=== PATIENT | male | born 1940 | race Caucasian/White ===

== ENCOUNTER 2019-02-23 06:23 | Day surgery (SDC) | payer MEDICARE ==
[2019-02-23] MEDS ORDERED: Dexamethasone 4 MG/ML SDV IV ONE (06:24)
[2019-02-23] MEDS ORDERED: Midazolam 1 MG/ML 2 ML SDV IV ONE (06:24)
[2019-02-23] MEDS ORDERED: Timolol Maleate 0.5% Ophth Soln 5 ML Bottle EYERT ONE (06:30)
[2019-02-23] MEDS ORDERED: Proparacaine 0.5% Ophth Soln 15 ML Bottle EYERT ONE (06:30)
[2019-02-23] MEDS ORDERED: Ondansetron 4 MG/2 ML SDV IVPUSH PRN (06:30)
[2019-02-23] MEDS ORDERED: Cataract Ophth Solution EYERT ONE (06:30)
[2019-02-23] MEDS ORDERED: Moxifloxacin 0.5% Ophth Soln 3 ML Bottle EYERT ONE (06:30)
[2019-02-23] MEDS ORDERED: Povidone-Iodine 5% Sterile Ophth Soln 30 ML Bottle EYERT ONE ×2 (06:30→07:58)
[2019-02-23] MEDS ORDERED: Sodium Chloride 0.9% 10 ML Syringe FLUSH PRN (06:30)
[2019-02-23] MEDS ORDERED: Phenylephrine 10% Ophth Soln 5 ML Bot EYERT ONE (06:30)
[2019-02-23] MEDS ORDERED: Tetracaine HCl/PF 0.5% 4 ML Bottle EYERT ONE (07:58)
[2019-02-23] MEDS ORDERED: Lidocaine 1% 30 ML SDV ONE (07:58)
[2019-02-23] MEDS ORDERED: Apraclonidine 0.5% Ophth Soln 5 ML Bot EYERT ONE (07:58)
[2019-02-23] MEDS ORDERED: Diclofenac Sodium 0.1% Ophth Soln 5 ML Bottle EYERT ONE (07:59)
[2019-02-23] MEDS ORDERED: Dexamethasone/Neomycin/Polymyxin B Ophth Oint 3.5 GM Tube EYERT ONE (07:59)
[2019-02-23] MEDS ORDERED: Balanced Salt Solution Ophth Irrig 500 ML Bottle IOCULAR ONE (07:59)
[2019-02-23] MEDS ORDERED: Chondroitin Sulfate/Hyaluronate Sodium Ophth Inj 0.75 ML Syringe EYERT ONE (07:59)
[2019-02-23] MEDS ORDERED: Acetaminophen 325 MG Tab PO PRN (08:00)
[2019-02-23] MEDS ORDERED: Dexamethasone 4 MG/ML SDV IOCULAR ONE (08:00)
[2019-02-23] MEDS ORDERED: Vancomycin 500 MG SDV EYERT ONE (08:00)
--- NOTE | 2019-02-23 11:17 | OR ---
DATE: 02/23/2019 PREOPERATIVE DIAGNOSIS: Visually significant mixed cataract, right eye. POSTOPERATIVE DIAGNOSIS: Visually significant mixed cataract, right eye. PROCEDURE: Extracapsular cataract extraction with intraocular lens implant, right eye. ANESTHESIA: Topical/local MAC. COMPLICATIONS: None. INDICATION: The patient was seen in the clinic. Examination revealed advanced cataract. I explained options, I offered cataract surgery, and I explained risks including, but not limited to infection, retinal detachment, loss of vision, need for additional surgery amongst others. We discussed implant options. He requested surgery with a monofocal implant. OPERATIVE DESCRIPTION: After informed consent was obtained and the risks, benefits, and alternatives were explained, the patient was brought to the operative suite and topical anesthesia was administered. The patient was then prepped and draped in the sterile fashion and attention was placed on the right eye. A sterile lid speculum was placed into the right eye to allow operative exposure. A full-thickness paracentesis was made in the temporal portion of the operative eye. Preservative-free lidocaine 0.1 mL was injected into the anterior chamber followed by viscoelastic. A full-thickness corneal incision was then made into the anterior chamber. A bent needle cystotome was used to create a small erika in the anterior capsule. The capsulorrhexis forceps was then used to create a 360-degree curvilinear capsulorrhexis. The nucleus was then removed using a phacoemulsification handpiece and the remaining cortical material was then removed with irrigation and aspiration handpiece. Following removal of the cortical material, the capsular bag was then inspected and noted to be free of any holes or tears. Viscoelastic was then injected into the capsular bag and the intraocular lens was inserted into the capsular bag. The viscoelastic material was then removed from both the anterior and posterior chambers and from behind the IOL. The lens and capsular bag were then reinspected. The IOL was well centered and the capsular bag intact. The wound and paracentesis sites were inspected and hydrated with balanced saline solution. Both were found to be self- sealing. The intraocular pressure was assessed digitally and found to be within normal range. A good red reflex was noted at the completion of the procedure. No complications occurred during the operation. At the completion of the procedure, Maxitrol, Voltaren, and Iopidine drops were placed into the operative eye. A sterile eye shield was placed over the operative eye and the patient was transported to the postoperative recovery area having tolerated the procedure well. Postoperative instructions were given along with a postoperative appointment. The patient was advised to call with any questions or concerns. [facility] /[id number]
== END 2019-02-23 09:11 | disposition home or self-care (01) ==
LOC: DL.SDS 06:23
PROVIDERS: ATTEND Ophthalmology
DX: H26.9 Unspecified cataract (principal); M19.90 Unspecified osteoarthritis, unspecified site; E78.5 Hyperlipidemia, unspecified; I10 Essential (primary) hypertension; E66.09 Other obesity due to excess calories; Z68.32 Body mass index [BMI] 32.0-32.9, adult; Z87.891 Personal history of nicotine dependence; Z79.899 Other long term (current) drug therapy; Z79.82 Long term (current) use of aspirin
CPT/HCPCS: 00142; 66984; A9270; J1100; J2001; J2250; J3370; V2632

== ENCOUNTER 2019-03-02 06:01 | Day surgery (SDC) | payer MEDICARE ==
[2019-03-02] MEDS ORDERED: Midazolam 1 MG/ML 2 ML SDV IV ONE (06:02)
[2019-03-02] MEDS ORDERED: Dexamethasone 4 MG/ML SDV IV ONE (06:02)
[2019-03-02] MEDS ORDERED: Proparacaine 0.5% Ophth Soln 15 ML Bottle ONE (06:15)
[2019-03-02] MEDS ORDERED: Cataract Ophth Solution EYELF ONE (06:30)
[2019-03-02] MEDS ORDERED: Moxifloxacin 0.5% Ophth Soln 3 ML Bottle EYELF ONE (06:30)
[2019-03-02] MEDS ORDERED: Phenylephrine 10% Ophth Soln 5 ML Bot EYELF ONE ×2 (06:30→08:03)
[2019-03-02] MEDS ORDERED: Proparacaine 0.5% Ophth Soln 15 ML Bottle EYELF ONE (06:30)
[2019-03-02] MEDS ORDERED: Povidone-Iodine 5% Sterile Ophth Soln 30 ML Bottle EYELF ONE ×2 (06:30→08:03)
[2019-03-02] MEDS ORDERED: Acetaminophen 325 MG Tab PO PRN (06:30)
[2019-03-02] MEDS ORDERED: Phenylephrine 10% Ophth Soln 5 ML Bot EYELF PRN (06:30)
[2019-03-02] MEDS ORDERED: Sodium Chloride 0.9% 10 ML Syringe FLUSH PRN (06:30)
[2019-03-02] MEDS ORDERED: Ondansetron 4 MG/2 ML SDV IVPUSH PRN (06:30)
[2019-03-02] MEDS ORDERED: Timolol Maleate 0.5% Ophth Soln 5 ML Bottle EYELF ONE (06:30)
[2019-03-02] MEDS ORDERED: Tetracaine HCl/PF 0.5% 4 ML Bottle EYELF ONE (08:03)
[2019-03-02] MEDS ORDERED: Lidocaine 1% 30 ML SDV ONE (08:03)
[2019-03-02] MEDS ORDERED: Apraclonidine 0.5% Ophth Soln 5 ML Bot EYELF ONE (08:03)
[2019-03-02] MEDS ORDERED: Diclofenac Sodium 0.1% Ophth Soln 5 ML Bottle EYELF ONE (08:03)
[2019-03-02] MEDS ORDERED: Balanced Salt Solution Ophth Irrig 500 ML Bottle IOCULAR ONE (08:04)
[2019-03-02] MEDS ORDERED: Chondroitin Sulfate/Hyaluronate Sodium Ophth Inj 0.75 ML Syringe EYELF ONE (08:04)
[2019-03-02] MEDS ORDERED: Vancomycin 500 MG SDV EYELF ONE (08:04)
[2019-03-02] MEDS ORDERED: Dexamethasone 4 MG/ML SDV ONE (08:08)
--- NOTE | 2019-03-02 12:23 | OR ---
DATE: 03/02/2019 PREOPERATIVE DIAGNOSIS: Visually significant mixed cataract, left eye. POSTOPERATIVE DIAGNOSIS: Visually significant mixed cataract, left eye. PROCEDURE: Extracapsular cataract extraction with intraocular lens implant, left eye. ANESTHESIA: Topical/local MAC. COMPLICATIONS: None. INDICATION: Visually significant symptomatic cataract. Surgical risks were explained preoperatively including the potential for infection, retinal detachment, loss of vision, need for additional surgery, amongst others. Implant options were discussed. He requested a monofocal implant. OPERATIVE DESCRIPTION: After informed consent was obtained and the risks, benefits, and alternatives were explained, the patient was brought to the operative suite and topical anesthesia was administered. The patient was then prepped and draped in the sterile fashion and attention was placed on the left eye. A sterile lid speculum was placed into the left eye to allow operative exposure. A full-thickness paracentesis was made in the temporal portion of the operative eye. Preservative-free lidocaine 0.1 mL was injected into the anterior chamber followed by viscoelastic. A full-thickness corneal incision was then made into the anterior chamber. A bent needle cystotome was used to create a small erika in the anterior capsule. The capsulorrhexis forceps was then used to create a 360-degree curvilinear capsulorrhexis. The nucleus was then removed using a phacoemulsification handpiece and the remaining cortical material was then removed with irrigation and aspiration handpiece. Following removal of the cortical material, the capsular bag was then inspected and noted to be free of any holes or tears. Viscoelastic was then injected into the capsular bag and the intraocular lens was inserted into the capsular bag. The viscoelastic material was then removed from both the anterior and posterior chambers and from behind the IOL. The lens and capsular bag were then reinspected. The IOL was well centered and the capsular bag intact. The wound and paracentesis sites were inspected and hydrated with balanced saline solution. Both were found to be self- sealing. The intraocular pressure was assessed digitally and found to be within normal range. A good red reflex was noted at the completion of the procedure. No complications occurred during the operation. At the completion of the procedure, Maxitrol, Voltaren, and Iopidine drops were placed into the operative eye. A sterile eye shield was placed over the operative eye and the patient was transported to the postoperative recovery area having tolerated the procedure well. Postoperative instructions were given along with a postoperative appointment. The patient was advised to call with any questions or concerns. [facility] /[id number]
== END 2019-03-02 09:15 | disposition home or self-care (01) ==
LOC: DL.SDS 06:01
PROVIDERS: ATTEND Ophthalmology
DX: H26.8 Other specified cataract (principal); I10 Essential (primary) hypertension; E78.5 Hyperlipidemia, unspecified; M19.90 Unspecified osteoarthritis, unspecified site; Z98.41 Cataract extraction status, right eye; Z96.1 Presence of intraocular lens; Z87.891 Personal history of nicotine dependence; Z79.82 Long term (current) use of aspirin; Z79.899 Other long term (current) drug therapy
CPT/HCPCS: 00142; 66984; J1100; J2001; J2250; J3370; V2632

== ENCOUNTER 2021-02-07 16:56 | Emergency (ER) | payer MEDICARE ==
--- NOTE | 2021-02-07 18:19 | CR ---
PROCEDURE INFORMATION: Exam: XR Abdomen Exam date and time: 02/07/2021 5:48 PM Age: 80 years old Clinical indication: Constipation; Abdominal pain; Generalized; Additional info: Abdominal pain, constipation TECHNIQUE: Imaging protocol: XR of the abdomen. Views: 2 Views. Upright and supine views. COMPARISON: No relevant prior studies available. FINDINGS: Gastrointestinal tract: Normal. No bowel dilation. Intraperitoneal space: Normal. No free air. Organs: Calcific density overlies the lateral inferior margin of the renal form contour on the left. The possibility of a left renal calculus not excluded. Bones/joints: The spine demonstrates moderate degenerative changes. Bilateral degenerative hip arthropathy. IMPRESSION: 1. Calcific density overlies the lateral inferior margin of the renal form contour on the left. The possibility of a left renal calculus not excluded. 2. Otherwise unremarkable.
--- NOTE | 2021-02-07 22:13 | EDM.PDOC ---
ED HPI GENERAL MEDICAL PROBLEM - General Chief Complaint: Abdominal Pain Stated Complaint: HASN'T GONE TO BATHROOM IN DAYS Time Seen by Provider: 02/07/21 22:00 Source of Information: Reports: Patient, RN, RN Notes Reviewed History Limitations: Reports: No Limitations - History of Present Illness INITIAL COMMENTS - FREE TEXT/NARRATIVE: Patient is a 80-year-old male who presents to ER with complaint of constipation, states he has not had a bowel movement in a few days. Patient states he has been using docusate sodium and Metamucil at home without results. Patient states he wanted to make sure he did not have a bowel obstruction prior to using magnesium citrate. Patient denies any nausea or vomiting, denies severe pain, just complains of a feeling of fullness. Onset: Gradual - Related Data Allergies Allergy/AdvReac Type Severity Reaction Status Date / Time No Known Allergies Allergy Verified 02/07/21 17:35 Home Meds: Home Meds Aspirin [Halfprin] 81 mg PO DAILY 02/21/19 [History] Olmesartan/Hydrochlorothiazide [Benicar HCT 20-12.5 MG] 1 tab PO DAILY 02/21/19 [History] [id number] [Cataract Opthalmic Solution] 1 drop EYERT ASDIRECTED 02/21/19 [History] Rosuvastatin [Crestor] 10 mg PO DAILY 02/21/19 [History] Vit A/Vit C/Vit E/Zinc/Copper [Preservision] 1 tab PO BID 02/21/19 [History] Past Medical History HEENT History: Reports: Cataract, Impaired Vision Cardiovascular History: Reports: High Cholesterol, Hypertension Respiratory History: Reports: None Gastrointestinal History: Reports: None Genitourinary History: Reports: None Musculoskeletal History: Reports: Arthritis Neurological History: Reports: None Psychiatric History: Reports: None Endocrine/Metabolic History: Reports: Obesity/BMI 30+ Hematologic History: Reports: None Immunologic History: Reports: None Oncologic (Cancer) History: Reports: None Dermatologic History: Reports: None - Infectious Disease History Infectious Disease History: Reports: Chicken Pox, Measles, Mumps - Past Surgical History Head Surgeries/Procedures: Reports: None HEENT Surgical History: Reports: Cataract Surgery, Oral Surgery Cardiovascular Surgical History: Reports: None Respiratory Surgical History: Reports: None GI Surgical History: Reports: None Male Surgical History: Reports: Vasectomy Endocrine Surgical History: Reports: None Neurological Surgical History: Reports: None Musculoskeletal Surgical History: Reports: None Oncologic Surgical History: Reports: None Dermatological Surgical History: Reports: None Social & Family History - Tobacco Use Tobacco Use Status *Q: Former Tobacco User Used Tobacco, but Quit: Yes Month/Year Tobacco Last Used: 05/1969 - Caffeine Use Caffeine Use: Reports: Coffee Other Caffeine Use: COFFEE, AVERAGE OF 2 EVERY AM - Recreational Drug Use Recreational Drug Use: No ED ROS GENERAL - Review of Systems Review Of Systems: Comprehensive ROS is negative, except as noted in HPI. ED EXAM, GI/ABD - Physical Exam Exam: See Below Exam Limited By: No Limitations General Appearance: Alert, WD/WN, No Apparent Distress Eyes: Bilateral: Normal Appearance, EOMI Ears: Normal External Exam, Hearing Grossly Normal Nose: Normal Inspection, Normal Mucosa, No Blood Throat/Mouth: Normal Inspection, Normal Lips, Normal Teeth, Normal Gums, Normal Oropharynx, Normal Voice, No Airway Compromise Head: Atraumatic, Normocephalic Neck: Normal Inspection, Supple, Non-Tender, Full Range of Motion Respiratory/Chest: No Respiratory Distress, Lungs Clear, Normal Breath Sounds, No Accessory Muscle Use, Chest Non-Tender Cardiovascular: Normal Peripheral Pulses, Regular Rate, Rhythm, No Edema, No Gallop, No JVD, No Murmur, No Rub GI/Abdominal Exam: Normal Bowel Sounds, Soft, Non-Tender, No Organomegaly, No Distention, No Abnormal Bruit, No Mass, Pelvis Stable (Male) Exam: Deferred Rectal (Males) Exam: Deferred Back Exam: Normal Inspection, Full Range of Motion, NT Extremities: Normal Inspection, Normal Range of Motion, Non-Tender, Normal Capillary Refill, No Pedal Edema Neurological: Alert, Oriented, CN II-XII Intact, Normal Cognition, Normal Gait, Normal Reflexes, No Motor/Sensory Deficits Psychiatric: Normal Affect, Normal Mood Skin Exam: Warm, Dry, Intact, Normal Color, No Rash Lymphatic: No Adenopathy Course - Vital Signs Last Recorded V/S: Last Vital Signs Temp 98.4 F 02/07/21 17:31 Pulse 104 H 02/07/21 17:31 Resp 20 02/07/21 17:31 BP 152/74 H 02/07/21 17:31 Pulse Ox 96 02/07/21 17:31 - Radiology Interpretation Free Text/Narrative:: Abdomen xray: [facility] [place] [facility] Final Radiology Report Call: [phone] assistance Online chat: [email or web address] Name: YEFRI GARDUNO Age: 80Years M Date: 02/07/2021 SSN: -- : [id number] Study: CR ABDOMEN 2V AP FLAT UPRIGHT Requesting Physician: BERE JOHN Images: 4 Addl Studies: Provided Clinical History: Abdominal pain, constipation Contrast: Contrast Medium: Contrast Amount: Contrast Method: Page 1 of 2 PROCEDURE INFORMATION: Exam: XR Abdomen Exam date and time: 02/07/2021 5:48 PM Age: 80 years old Clinical indication: Constipation; Abdominal pain; Generalized; Additional info: Abdominal pain, constipation TECHNIQUE: Imaging protocol: XR of the abdomen. Views: 2 Views. Upright and supine views. COMPARISON: No relevant prior studies available. FINDINGS: Gastrointestinal tract: Normal. No bowel dilation. Intraperitoneal space: Normal. No free air. Organs: Calcific density overlies the lateral inferior margin of the renal form contour on the left. The possibility of a left renal calculus not excluded. Bones/joints: The spine demonstrates moderate degenerative changes. Bilateral degenerative hip arthropathy. IMPRESSION: 1. Calcific density overlies the lateral inferior margin of the renal form contour on the left. The possibility of a left renal calculus not excluded. 2. Otherwise unremarkable. Thank you for allowing us to participate in the care of your patient. Dictated and Authenticated by: Jorge Song MD See rad report Departure - Departure Time of Disposition: 22:11 Disposition: Home, Self-Care 01 Condition: Good Clinical Impression: Constipation Qualifiers: Constipation type: unspecified constipation type Qualified Code(s): K59.00 - Constipation, unspecified - Discharge Information *PRESCRIPTION DRUG MONITORING PROGRAM REVIEWED*: No *COPY OF PRESCRIPTION DRUG MONITORING REPORT IN PATIENT GALE: No Instructions: Constipation, Adult, [id number] Forms: ED Department Discharge Additional Instructions: May use magnesium citrate at home as directed, drink entire bottle May use [id number] suppositories as directed for constipation May also use MiraLAX as directed for chronic constipation Follow-up with your primary care provider Sepsis Event Note (ED) - Focused Exam Vital Signs: Vital Signs Temp Pulse Resp BP Pulse Ox 02/07/21 17:31 98.4 F 104 H 20 152/74 H 96
== END 2021-02-07 22:20 | disposition home or self-care (01) ==
LOC: DL.ED 16:56
DX: K59.00 Constipation, unspecified (principal); E78.00 Pure hypercholesterolemia, unspecified; I10 Essential (primary) hypertension; E66.9 Obesity, unspecified; Z68.32 Body mass index [BMI] 32.0-32.9, adult; Z79.82 Long term (current) use of aspirin; Z87.891 Personal history of nicotine dependence; Z79.899 Other long term (current) drug therapy
CPT/HCPCS: 74019; 99283-25

== ENCOUNTER 2021-02-28 07:30 | Day surgery (SDC) | payer MEDICARE ==
[~2021-02-28 07:30] MED LIST: Dextrose 5%-0.45% NaCl 1,000 ML IV SCH; Midazolam 1 MG/ML 2 ML SDV ONE; Sodium Chloride 0.9% 10 ML Syringe FLUSH PRN; fentaNYL 100 MCG/2 ML SDV ONE
[2021-02-28] MEDS ORDERED: fentaNYL 100 MCG/2 ML SDV IV ONE ×3 (07:31→08:51)
[2021-02-28] MEDS ORDERED: Midazolam 1 MG/ML 2 ML SDV IV ONE ×4 (07:31→08:54)
--- NOTE | 2021-02-28 12:37 | OR ---
DATE: 02/28/2021 PROCEDURE: Esophagogastroduodenoscopy and multiple pinch biopsies. INSTRUMENT USED: [id number]-HQ190 Olympus video panendoscope. PREMEDICATIONS: No oral or topical anesthesia used. Fentanyl 100 mcg intravenous, Versed 2 mg IV. Nasal O2 cannula. The procedure was done under pulse oximetry, BP recording, and flavor tank tender. INDICATION: The patient with persistent abdominal pain and progressive weight loss, unexplained. Esophagogastroduodenoscopy is performed for detection of any active erosive lesions, Reich esophagus and/or malignancy also under consideration, H pylori status to be determined, small bowel biopsies to be obtained for any evidence of celiac disease, endoscopic hemostasis therapy if needed. DESCRIPTION OF PROCEDURE: The scope was passed with ease, adequate visualization of the esophagus was made from proximal to distal areas. No upper esophageal lesions identified. No distal esophageal stricture. No uphill or downhill esophageal varices. No María-Harper tear. No evidence of erosive esophagitis by [place] criteria. No esophageal polyp or tumor mass identified. Z-line was seen at around 40 cm distal to the oral verge. No proximal gastric varices noted. Gastric fundus examination by retroflexion showed no polypoid lesions. No gastric polyp or vascular ectasia identified. In the proximal antrum, 1 cm size benign-appearing ulcer was noted, photographs were taken, multiple pinch biopsies, 4 in number were taken from different areas of the ulcer and brush biopsy was taken for cytology. Duodenal bulb showed no ulcer. Visualized second part of the duodenum was unremarkable. Multiple pinch biopsies, 4 in number were taken from different areas of the second part of the duodenum and tissues were also obtained from the duodenal bulb at 9 and 12 o'clock positions and sent for any histopathologic evidence of celiac disease. Multiple pinch biopsies were also taken from the gastric antrum, proximal body and sent for PyloriTek test for H pylori and histopathology. No bleeding was noted from any of the visualized areas at the completion of examination. Photographs were taken of the duodenal bulb, gastric antrum, gastric antral ulcer as well as fundus. IMPRESSION: Gastric antral ulcer. The patient tolerated the procedure well. [facility] /[id number]
== END 2021-02-28 11:14 | disposition home or self-care (01) ==
LOC: DL.ENDO 07:30
PROVIDERS: ATTEND Internal Medicine Gastroenterology
DX: K25.9 Gastric ulcer, unspecified as acute or chronic, without hemorrhage or perforation (principal); B96.81 Helicobacter pylori [H. pylori] as the cause of diseases classified elsewhere; Z20.822 Contact with and (suspected) exposure to COVID-19; R63.4 Abnormal weight loss; E78.5 Hyperlipidemia, unspecified; E11.9 Type 2 diabetes mellitus without complications; E66.09 Other obesity due to excess calories; I10 Essential (primary) hypertension; Z98.890 Other specified postprocedural states; Z01.812 Encounter for preprocedural laboratory examination; Z68.30 Body mass index [BMI] 30.0-30.9, adult
CPT/HCPCS: 43239; 82947; 87077; J2250; J3010; J7042; U0002; 88104

== ENCOUNTER 2021-03-13 05:50 | Day surgery (SDC) | payer MEDICARE ==
[~2021-03-13 05:50] MED LIST changes: -Dextrose 5%-0.45% NaCl 1,000 ML IV SCH; -Sodium Chloride 0.9% 10 ML Syringe FLUSH PRN
[2021-03-13] MEDS ORDERED: fentaNYL 100 MCG/2 ML SDV IV ONE ×3 (05:51→07:04)
[2021-03-13] MEDS ORDERED: Midazolam 1 MG/ML 2 ML SDV IV ONE ×6 (05:51→07:11)
[2021-03-13] MEDS ORDERED: Dextrose 5%-0.45% NaCl 1,000 ML IV SCH (06:15)
--- NOTE | 2021-03-13 14:27 | OR ---
DATE: 03/13/2021 PROCEDURES: Total colonoscopy, NBI, and multiple cold snare polypectomies. INSTRUMENT USED: [id number]-H190DL Olympus video colonoscope. PREMEDICATIONS: Fentanyl 100 mcg intravenous, Versed 3 mg intravenous, nasal O2 cannula. The procedure was done under pulse oximetry, BP recording, and cardiac catheterization technician. INDICATION: The patient with progressive constipation, unexplained, and recent CT suggestive of sigmoid colon lesion. Colonoscopic examination is done for detection of any polypoid lesions and removal, endoscopic hemostasis therapy if needed. DESCRIPTION OF PROCEDURE: Initial rectal exam showed external hemorrhoidal tags. Rigid anoscopy was normal. The colonoscope was passed with ease. Scattered diverticula were noted in the distal left colon along with deformity. The scope was passed with ease up to the ileocecal area. Photographs were taken of the normal-appearing cecum, identified by landmarks of appendiceal orifice and double-bulged ileocecal folds. No bleeding was noted from any of the visualized areas at the commencement of the examination. Bowel preparation was found to be adequate, Clayton scale 2 in right and left colon, 3 in transverse colon, total score 7. No stricture. No vascular ectasia. No large isolated ulcerations seen. No evidence of diffuse inflammatory bowel disease in the form of friability, contact bleeding, or ulcerations. In the area of hepatic flexure, benign appearing 1 cm sessile polyp was noted, NBI views were obtained, photographs were taken. Piecemeal cold snare polypectomy was done, the tissues were retrieved and sent for histopathology. 5 mm pedunculated polyp was noted at the distal ascending colon, cold snare polypectomy was done. The tissue was retrieved and sent for histopathology. Probing the proximal sides of folds and flexures using adequate distention and clearing up the stool material, withdrawal of the scope was made. No bleeding was noted from any of the visualized areas at the completion of examination. IMPRESSION: 1. External hemorrhoids. 2. Diverticulosis. 3. Ascending colon polyps. The patient tolerated the procedure well. [facility] /[id number]
== END 2021-03-13 10:10 | disposition home or self-care (01) ==
LOC: DL.ENDO 05:50
PROVIDERS: ATTEND Internal Medicine Gastroenterology
DX: D12.2 Benign neoplasm of ascending colon (principal); D12.3 Benign neoplasm of transverse colon; K59.00 Constipation, unspecified; K64.4 Residual hemorrhoidal skin tags; K57.30 Diverticulosis of large intestine without perforation or abscess without bleeding; E11.9 Type 2 diabetes mellitus without complications; E78.5 Hyperlipidemia, unspecified; I10 Essential (primary) hypertension; K25.9 Gastric ulcer, unspecified as acute or chronic, without hemorrhage or perforation
CPT/HCPCS: 45385; 88305; J2250; J3010; J7042

== ENCOUNTER 2021-06-04 05:40 | Day surgery (SDC) | payer MEDICARE ==
[~2021-06-04 05:40] MED LIST changes: +Dextrose 5%-0.45% NaCl 1,000 ML IV SCH; -Midazolam 1 MG/ML 2 ML SDV ONE; +Sodium Chloride 0.9% 10 ML Syringe FLUSH SCH; -fentaNYL 100 MCG/2 ML SDV ONE
[2021-06-04] MEDS ORDERED: fentaNYL 100 MCG/2 ML SDV IV ONE (05:41)
[2021-06-04] MEDS ORDERED: Midazolam 1 MG/ML 2 ML SDV IV ONE (05:41)
[2021-06-04] MEDS ORDERED: Midazolam 1 MG/ML 2 ML SDV ONE (06:10)
[2021-06-04] MEDS ORDERED: fentaNYL 100 MCG/2 ML SDV ONE (06:10)
[2021-06-04] MEDS: Dextrose 5%-0.45% NaCl 1,000 ML IV SCH (06:17)
[2021-06-04] MEDS: fentaNYL 100 MCG/2 ML SDV IV ONE ×2 (07:04→07:05)
[2021-06-04] MEDS: Midazolam 1 MG/ML 2 ML SDV IV ONE (07:06)
== END 2021-06-04 09:15 | disposition home or self-care (01) ==
LOC: DL.ENDO 05:40
PROVIDERS: ATTEND Internal Medicine Gastroenterology
DX: K29.50 Unspecified chronic gastritis without bleeding (principal); K31.89 Other diseases of stomach and duodenum; E11.9 Type 2 diabetes mellitus without complications; I10 Essential (primary) hypertension; E78.5 Hyperlipidemia, unspecified; Z86.010 Personal history of colon polyps; Z01.812 Encounter for preprocedural laboratory examination; Z20.822 Contact with and (suspected) exposure to COVID-19; Z87.19 Personal history of other diseases of the digestive system
CPT/HCPCS: 82947; J2250; J3010; J7042; U0002

== ENCOUNTER 2024-04-11 16:57 | Inpatient (IN) | payer MEDICARE ==
[2024-04-11 17:56] LABS: BASOPHILS PERCENT AUTO 0.2 % (0.0-1.0); EOSINOPHILS PERCENT AUTO 1.7 % (1.0-3.0); HEMATOCRIT 37.3 % (40.0-54.0); HEMOGLOBIN 12.2 g/dL (14.0-18.0); LYMPHOCYTES PERCENT AUTO 10.1 % (20.5-50.1); MEAN CORPUSCULAR HEMOGLOBIN 28.7 pg (27.0-34.0); MEAN CORPUSCULAR HGB CONC 32.7 g/dL (33.0-35.0); MEAN CORPUSCULAR VOLUME 87.8 fL (80-100); MONOCYTES PERCENT AUTO 6.9 % (2-8); NEUTROPHILS PERCENT AUTO 81.1 % (42.2-75.2); PLATELET COUNT,PLT 231 10^3/uL (150-450); RED BLOOD CELL COUNT 4.25 10^6/uL (4.6-6.2); WHITE BLOOD CELL COUNT,WBC 10.2 10^3/uL (5.0-10.0)
[2024-04-11] MEDS: Acetaminophen 325 MG Tab PO ONE (18:14)
[2024-04-11] MEDS: Piperacillin/Tazobactam 4.5 GM in Sodium Chloride 0.9% 100 ML IV ONE (18:15)
[2024-04-11 18:18] LABS: LACTIC ACID 1.7 mmol/L (0.4-2.0)
[2024-04-11 18:24] LABS: ALANINE AMINOTRANSFERASE,ALT 24 U/L (16-63); ALBUMIN 3.3 g/dL (3.4-5.0); ALKALINE PHOSPHATASE 140 U/L (46-116); ANION GAP 14.3 mEq/L (7-13); ASPARTATE AMNIOTRANSFERASE,AST 18 U/L (15-37); BILIRUBIN TOTAL 0.4 mg/dL (0.2-1.0); BLOOD UREA NITROGEN,BUN 17 mg/dL (7-18); BUN/CREATININE RATIO 19.5 (No establ ref range); C-REACTIVE PROTEIN 2.35 ng/dL (<=0.50); CALCIUM 9.1 mg/dL (8.5-10.1); CARBON DIOXIDE,CO2 29 mmol/L (21-32); CHLORIDE,CL 99 mmol/L (98-107); CREATININE 0.87 mg/dL (0.70-1.30); GLUCOSE RANDOM 173 mg/dL (70-99); MAGNESIUM 1.8 mg/dL (1.8-2.4); POTASSIUM,K 3.3 mmol/L (3.5-5.1); PROTEIN TOTAL,TP 7.8 g/dL (6.4-8.2); SODIUM,NA 139 mmol/L (136-145)
[2024-04-11 18:25] LABS: A/G RATIO 0.73; ESTIMATED GFR 87 mL/min (>=60)
[2024-04-11] MEDS ORDERED: Acetaminophen/HYDROcodone 325-10 MG Tab PO PRN (20:51)
[2024-04-11] MEDS ORDERED: Magnesium Hydroxide 400 MG/5 ML Susp 30 ML Cup PO PRN (20:51)
[2024-04-11] MEDS ORDERED: Polyethylene Glycol 3350 Powder 17 GM Packet PO PRN (20:51)
[2024-04-11] MEDS ORDERED: Albuterol/Ipratropium 3.0-0.5 MG/3 ML Neb Soln NEB PRN (20:51)
[2024-04-11] MEDS ORDERED: Naloxone 2 MG/2 ML Syringe IVPUSH PRN (20:51)
[2024-04-11] MEDS ORDERED: Metoclopramide 10 MG/2 ML SDV IV PRN (20:51)
[2024-04-11] MEDS ORDERED: HYDROmorphone 0.5 MG/0.5 ML Syringe IVPUSH PRN ×2 (20:51→21:02)
[2024-04-11] MEDS ORDERED: Sennosides/Docusate Sodium 50-8.6 MG Tab PO PRN (20:51)
[2024-04-11 20:52] LABS: HEMOGLOBIN A1C 7.7 % (<5.7)
[2024-04-11 21:01] LABS: T4 FREE 1.37 ng/dL (0.76-1.46); TSH ULTRASENSITIVE 0.94 uIU/mL (0.36-3.74)
[2024-04-11] MEDS: Potassium Chloride 10 MEQ Tab.ER PO ONE (21:42)
[2024-04-11] MEDS: Sodium Chloride 0.9% 1,000 ML IV ONE (21:42)
[2024-04-11] MEDS: VANCOmycin 1.75 GM/350 ML 1.75 GM in Premix Bag 1 BAG IV ONE (21:43)
[2024-04-11] MEDS: Temazepam 15 MG Cap PO PRN (21:44)
[2024-04-11] MEDS: Potassium Chloride 10 MEQ Tab.ER PO SCH (21:44)
[2024-04-12] MEDS: Ampicillin/Sulbactam Na 1.5 GM in Sodium Chloride 0.9% 100 ML IV SCH (00:12)
[2024-04-12] MEDS ORDERED: 50% Dextrose in Water 50 ML Syringe IVPUSH PRN (06:23)
[2024-04-12] MEDS ORDERED: Glucagon,Human Recombinant 1 MG Vial IM PRN (06:23)
[2024-04-12 08:03] LABS: BASOPHILS PERCENT AUTO 0.2 % (0.0-1.0); EOSINOPHILS PERCENT AUTO 1.6 % (1.0-3.0); HEMATOCRIT 34.3 % (40.0-54.0); MEAN CORPUSCULAR HEMOGLOBIN 28.3 pg (27.0-34.0); MEAN CORPUSCULAR HGB CONC 32.1 g/dL (33.0-35.0); MEAN CORPUSCULAR VOLUME 88.2 fL (80-100); MONOCYTES PERCENT AUTO 6.4 % (2-8); NEUTROPHILS PERCENT AUTO 80.8 % (42.2-75.2); PLATELET COUNT,PLT 194 10^3/uL (150-450); RED BLOOD CELL COUNT 3.89 10^6/uL (4.6-6.2); WHITE BLOOD CELL COUNT,WBC 9.8 10^3/uL (5.0-10.0)
[2024-04-12 08:31] LABS: ALBUMIN 2.7 g/dL (3.4-5.0); BILIRUBIN TOTAL 0.5 mg/dL (0.2-1.0); BUN/CREATININE RATIO 14.9 (No establ ref range); C-REACTIVE PROTEIN 3.24 ng/dL (<=0.50); CALCIUM 8.6 mg/dL (8.5-10.1); CREATININE 0.87 mg/dL (0.70-1.30); EST CRCL DRUG DOSING (CG) 70.92 mL/min; MAGNESIUM 1.9 mg/dL (1.8-2.4); PROTEIN TOTAL,TP 6.9 g/dL (6.4-8.2)
[2024-04-12 08:34] LABS: A/G RATIO 0.64
[2024-04-12] MEDS: Omeprazole 20 MG Cap.CR PO SCH (08:40)
[2024-04-12] MEDS: Saccharomyces Boulardii (Probiotic) 250 MG Cap PO SCH (08:41)
[2024-04-12] MEDS: Losartan 50 MG Tab PO SCH (08:41)
[2024-04-12] MEDS: Rosuvastatin 10 MG Tab PO SCH (08:41)
[2024-04-12] MEDS: Furosemide 20 MG Tab PO SCH (08:42)
[2024-04-12] MEDS: Insulin Lispro 100 Units/ML 3 ML Vial SUBCUT SCH (08:44)
[2024-04-12] MEDS: Enoxaparin 40 MG/0.4 ML Syringe SUBCUT SCH (08:52)
[2024-04-12] MEDS: Psyllium Husk Powder (4 in 1) 3.4 GM Packet PO SCH (09:00)
[2024-04-12] MEDS: VANCOmycin 1 GM in Sodium Chloride 0.9% 250 ML IV SCH (20:59)
[2024-04-12] MEDS: Lutein/Minerals/Vit A,C & E Tab PO SCH (20:59)
[2024-04-12] MEDS: Thiamine 100 MG Tab PO SCH (21:00)
[2024-04-12] MEDS ORDERED: Multivitamins with Iron/Calcium/Folic Acid/Minerals Tab PO SCH (21:00)
[2024-04-12] MEDS: Melatonin 3 MG Tab PO PRN (21:00)
[2024-04-12] MEDS: Acetaminophen 325 MG Tab PO PRN (21:00)
[2024-04-13 06:56] LABS: BASOPHILS PERCENT AUTO 0.2 % (0.0-1.0); EOSINOPHILS PERCENT AUTO 2.5 % (1.0-3.0); HEMATOCRIT 33.9 % (40.0-54.0); HEMOGLOBIN 10.8 g/dL (14.0-18.0); LYMPHOCYTES PERCENT AUTO 13.8 % (20.5-50.1); MEAN CORPUSCULAR HEMOGLOBIN 28.3 pg (27.0-34.0); MEAN CORPUSCULAR HGB CONC 31.9 g/dL (33.0-35.0); MEAN CORPUSCULAR VOLUME 88.7 fL (80-100); MONOCYTES PERCENT AUTO 6.5 % (2-8); PLATELET COUNT,PLT 198 10^3/uL (150-450); RED BLOOD CELL COUNT 3.82 10^6/uL (4.6-6.2); WHITE BLOOD CELL COUNT,WBC 8.5 10^3/uL (5.0-10.0)
[2024-04-13 07:32] LABS: ALBUMIN 2.7 g/dL (3.4-5.0); BILIRUBIN TOTAL 0.4 mg/dL (0.2-1.0); BUN/CREATININE RATIO 16.9 (No establ ref range); C-REACTIVE PROTEIN 4.07 ng/dL (<=0.50); CALCIUM 8.7 mg/dL (8.5-10.1); CREATININE 0.89 mg/dL (0.70-1.30); EST CRCL DRUG DOSING (CG) 69.33 mL/min; MAGNESIUM 1.9 mg/dL (1.8-2.4); PROTEIN TOTAL,TP 6.9 g/dL (6.4-8.2)
[2024-04-13 07:41] LABS: A/G RATIO 0.64
[2024-04-13] MEDS ORDERED: Hydrochlorothiazide 25 MG Tab PO SCH (09:00)
[2024-04-13] MEDS: Hydrochlorothiazide 25 MG Tab PO SCH (09:14)
[2024-04-13] MEDS: traMADol 50 MG Tab PO PRN (20:32)
[2024-04-14 07:04] LABS: BASOPHILS PERCENT AUTO 0.4 % (0.0-1.0); EOSINOPHILS PERCENT AUTO 3.4 % (1.0-3.0); HEMATOCRIT 35.1 % (40.0-54.0); HEMOGLOBIN 11.1 g/dL (14.0-18.0); LYMPHOCYTES PERCENT AUTO 17.3 % (20.5-50.1); MEAN CORPUSCULAR HEMOGLOBIN 28.2 pg (27.0-34.0); MEAN CORPUSCULAR HGB CONC 31.6 g/dL (33.0-35.0); MEAN CORPUSCULAR VOLUME 89.3 fL (80-100); MONOCYTES PERCENT AUTO 6.6 % (2-8); NEUTROPHILS PERCENT AUTO 72.3 % (42.2-75.2); PLATELET COUNT,PLT 216 10^3/uL (150-450); RED BLOOD CELL COUNT 3.93 10^6/uL (4.6-6.2); WHITE BLOOD CELL COUNT,WBC 7.7 10^3/uL (5.0-10.0)
[2024-04-14 07:31] LABS: ALBUMIN 2.8 g/dL (3.4-5.0); BILIRUBIN TOTAL 0.3 mg/dL (0.2-1.0); BUN/CREATININE RATIO 21.5 (No establ ref range); C-REACTIVE PROTEIN 3.1 ng/dL (<=0.50); CALCIUM 8.9 mg/dL (8.5-10.1); CREATININE 0.93 mg/dL (0.70-1.30); EST CRCL DRUG DOSING (CG) 66.35 mL/min; MAGNESIUM 1.9 mg/dL (1.8-2.4); PROTEIN TOTAL,TP 7.3 g/dL (6.4-8.2)
[2024-04-14 07:32] LABS: A/G RATIO 0.62
[2024-04-14] MEDS: Lidocaine 1% 30 ML SDV INJECT ONE (11:20)
[2024-04-14] MEDS: LORazepam 2 MG/ML SDV IV ONE (11:35)
[2024-04-14] MEDS: HYDROmorphone 2 MG/ML Syringe IV ONE (11:38)
[2024-04-14] MEDS: Bacitracin Oint 28.35 GM Tube TOP SCH (11:44)
[2024-04-14] MEDS ORDERED: Bacitracin/Neomycin/Polymyxin B Oint 28.4 GM Tube TOP SCH (11:45)
[2024-04-14] MEDS: VIT C PO SCH (15:00)
[2024-04-14] MEDS: [UNRECOGNIZED DRUG - OTHER] PO SCH (15:00)
[2024-04-14] MEDS: LUTEIN PO SCH (15:00)
[2024-04-14] MEDS: CUPERIC PO SCH (15:00)
[2024-04-14] MEDS: ZINC PO SCH (15:00)
[2024-04-14] MEDS: Ondansetron 4 MG/2 ML SDV IVPUSH PRN (15:26)
[2024-04-14] MEDS ORDERED: VANCOmycin 1.75 GM/350 ML 350 ML IV SCH (20:30)
== END 2024-04-14 15:37 | disposition swing bed (61) | DRG 872 ==
LOC: DL.ED 16:57 → DL.MS 18:35 → DL.ED 18:40
PROVIDERS: ADMIT Internal Medicine; ATTEND Internal Medicine
PROC: 3E03329 Introduction of Other Anti-infective into Peripheral Vein, Percutaneous Approach (ICD-10-PCS; 2024-04-12)
PROC: 0HBLXZZ Excision of Left Lower Leg Skin, External Approach (ICD-10-PCS; principal; 2024-04-14)
PROC: 0HBKXZZ Excision of Right Lower Leg Skin, External Approach (ICD-10-PCS; 2024-04-14)
DX: A41.01 Sepsis due to Methicillin susceptible Staphylococcus aureus (principal); L03.116 Cellulitis of left lower limb; E11.621 Type 2 diabetes mellitus with foot ulcer; L97.929 Non-pressure chronic ulcer of unspecified part of left lower leg with unspecified severity; L97.919 Non-pressure chronic ulcer of unspecified part of right lower leg with unspecified severity; H54.7 Unspecified visual loss; E11.9 Type 2 diabetes mellitus without complications; I10 Essential (primary) hypertension; K59.09 Other constipation; F41.9 Anxiety disorder, unspecified; F32.A Depression, unspecified; E11.628 Type 2 diabetes mellitus with other skin complications; E78.00 Pure hypercholesterolemia, unspecified; H26.9 Unspecified cataract; E66.9 Obesity, unspecified; M19.90 Unspecified osteoarthritis, unspecified site; F15.90 Other stimulant use, unspecified, uncomplicated; L40.9 Psoriasis, unspecified; E11.65 Type 2 diabetes mellitus with hyperglycemia; R79.89 Other specified abnormal findings of blood chemistry; E87.6 Hypokalemia; E88.09 Other disorders of plasma-protein metabolism, not elsewhere classified; Z74.09 Other reduced mobility; E11.622 Type 2 diabetes mellitus with other skin ulcer; D50.9 Iron deficiency anemia, unspecified; Z98.49 Cataract extraction status, unspecified eye; Z79.82 Long term (current) use of aspirin; Z79.84 Long term (current) use of oral hypoglycemic drugs; Z79.899 Other long term (current) drug therapy; Z68.29 Body mass index [BMI] 29.0-29.9, adult; Z98.52 Vasectomy status; Z98.890 Other specified postprocedural states; Z87.891 Personal history of nicotine dependence
CPT/HCPCS: 36415; 73610; 80053; 82306; 82746; 82947; 83036; 83605; 83735; 84145; 84439; 84443; 85025; 86140; 87040 ×2; 96374; 99284; A9270; J2543; J3490; 80202; 87070; 87077; 87186; 99223; 99232; 99233; 99238; J0295; J1171; J1650; J1815-GY; J2060; J2405; J3372; J7050

== ENCOUNTER 2024-04-14 14:09 | Inpatient (IN) | payer MEDICARE ==
[2024-04-14] MEDS ORDERED: Ondansetron 4 MG/2 ML SDV IVPUSH PRN (14:15)
[2024-04-14] MEDS ORDERED: Polyethylene Glycol 3350 Powder 17 GM Packet PO PRN (14:15)
[2024-04-14] MEDS ORDERED: Acetaminophen 325 MG Tab PO PRN (14:15)
[2024-04-14] MEDS ORDERED: Albuterol/Ipratropium 3.0-0.5 MG/3 ML Neb Soln NEB PRN (14:15)
[2024-04-14] MEDS ORDERED: Metoclopramide 10 MG/2 ML SDV IV PRN (14:15)
[2024-04-14] MEDS ORDERED: Naloxone 2 MG/2 ML Syringe IVPUSH PRN (14:15)
[2024-04-14] MEDS ORDERED: 50% Dextrose in Water 50 ML Syringe IVPUSH PRN (14:15)
[2024-04-14] MEDS ORDERED: Glucagon,Human Recombinant 1 MG Vial IM PRN ×2 (14:15)
[2024-04-14] MEDS: Insulin Lispro 100 Units/ML 3 ML Vial SUBCUT SCH (17:38)
[2024-04-14] MEDS: Ampicillin/Sulbactam Na 1.5 GM in Sodium Chloride 0.9% 100 ML IV SCH (17:38)
[2024-04-14] MEDS: Bacitracin Oint 28.35 GM Tube TOP SCH (20:38)
[2024-04-14] MEDS: Lutein/Minerals/Vit A,C & E Tab PO SCH (20:39)
[2024-04-14] MEDS: Thiamine 100 MG Tab PO SCH (20:39)
[2024-04-14] MEDS: Potassium Chloride 10 MEQ Tab.ER PO SCH (20:39)
[2024-04-14] MEDS: Saccharomyces Boulardii (Probiotic) 250 MG Cap PO SCH (20:40)
[2024-04-14] MEDS: traMADol 50 MG Tab PO PRN (20:49)
[2024-04-14] MEDS: VANCOmycin 1.75 GM/350 ML 350 ML IV SCH (20:50)
[2024-04-14] MEDS ORDERED: CUPERIC PO SCH (21:00)
[2024-04-14] MEDS ORDERED: LUTEIN PO SCH (21:00)
[2024-04-14] MEDS ORDERED: [UNRECOGNIZED DRUG - OTHER] PO SCH (21:00)
[2024-04-14] MEDS ORDERED: VIT C PO SCH (21:00)
[2024-04-14] MEDS ORDERED: ZINC PO SCH (21:00)
[2024-04-14] MEDS: Melatonin 3 MG Tab PO PRN (23:19)
[2024-04-14] MEDS: HYDROmorphone 0.5 MG/0.5 ML Syringe IVPUSH PRN (23:20)
[2024-04-15] MEDS: Sennosides/Docusate Sodium 50-8.6 MG Tab PO PRN (08:52)
[2024-04-15] MEDS: Losartan 50 MG Tab PO SCH (08:52)
[2024-04-15] MEDS: Omeprazole 20 MG Cap.CR PO SCH (08:52)
[2024-04-15] MEDS: Enoxaparin 40 MG/0.4 ML Syringe SUBCUT SCH (08:52)
[2024-04-15] MEDS: Rosuvastatin 10 MG Tab PO SCH (08:53)
[2024-04-15] MEDS: Hydrochlorothiazide 25 MG Tab PO SCH (08:53)
[2024-04-15] MEDS: Psyllium Husk Powder (4 in 1) 3.4 GM Packet PO SCH (08:53)
[2024-04-15] MEDS: Furosemide 20 MG Tab PO SCH (08:53)
[2024-04-15] MEDS: Magnesium Hydroxide 400 MG/5 ML Susp 30 ML Cup PO PRN (18:21)
[2024-04-15] MEDS ORDERED: Ciprofloxacin in D5W 200 MG in Premix Bag 1 BAG IV SCH (21:00)
[2024-04-15] MEDS: Ciprofloxacin in D5W 200 MG in Premix Bag 1 BAG IV SCH (21:50)
[2024-04-16 07:32] LABS: EST CRCL DRUG DOSING (CG) 61.7 mL/min
[2024-04-16] MEDS: Sennosides/Docusate Sodium 50-8.6 MG Tab PO SCH (09:06)
[2024-04-16] MEDS: Cholecalciferol (Vitamin D3) 25 MCG Tab PO ONE (13:15)
[2024-04-16] MEDS: Omeprazole 20 MG Cap.CR PO SCH (15:52)
[2024-04-16] MEDS: Dexamethasone 4 MG Tab PO SCH (17:04)
[2024-04-16] MEDS: Vitamin E (dl-alpha-tocopherol acetate) 400 Unit Cap PO SCH (20:27)
[2024-04-16] MEDS: Folic Acid 1 MG Tab PO SCH (20:27)
[2024-04-16] MEDS ORDERED: 50% Dextrose in Water 50 ML Syringe IVPUSH PRN (21:05)
[2024-04-16] MEDS ORDERED: Glucagon,Human Recombinant 1 MG Vial IM PRN (21:05)
[2024-04-17] MEDS: metFORMIN 500 MG Tab PO SCH (08:25)
[2024-04-17] MEDS: Insulin Glarg,Human.Rec.Analog 100 Unit/ML 10 ML Vial SUBCUT SCH (08:26)
[2024-04-17] MEDS: Cholecalciferol (Vitamin D3) 25 MCG Tab PO SCH (11:58)
[2024-04-18 06:33] LABS: BASOPHILS PERCENT AUTO 0.1 % (0.0-1.0); HEMATOCRIT 35.2 % (40.0-54.0); HEMOGLOBIN 11.2 g/dL (14.0-18.0); LYMPHOCYTES PERCENT AUTO 8.6 % (20.5-50.1); MEAN CORPUSCULAR HEMOGLOBIN 28.4 pg (27.0-34.0); MEAN CORPUSCULAR HGB CONC 31.8 g/dL (33.0-35.0); MEAN CORPUSCULAR VOLUME 89.3 fL (80-100); MONOCYTES PERCENT AUTO 4.2 % (2-8); NEUTROPHILS PERCENT AUTO 87.1 % (42.2-75.2); PLATELET COUNT,PLT 229 10^3/uL (150-450); RED BLOOD CELL COUNT 3.94 10^6/uL (4.6-6.2); WHITE BLOOD CELL COUNT,WBC 11.9 10^3/uL (5.0-10.0)
[2024-04-18 06:53] LABS: ALBUMIN 2.8 g/dL (3.4-5.0); ANION GAP 13.2 mEq/L (7-13); BILIRUBIN TOTAL 0.3 mg/dL (0.2-1.0); BUN/CREATININE RATIO 24.2 (No establ ref range); C-REACTIVE PROTEIN 0.78 ng/dL (<=0.50); CALCIUM 8.9 mg/dL (8.5-10.1); CREATININE 0.99 mg/dL (0.70-1.30); EST CRCL DRUG DOSING (CG) 62.33 mL/min; MAGNESIUM 2.2 mg/dL (1.8-2.4); POTASSIUM,K 4.2 mmol/L (3.5-5.1); PROTEIN TOTAL,TP 7.2 g/dL (6.4-8.2)
[2024-04-18 06:58] LABS: A/G RATIO 0.64
[2024-04-18] MEDS: Bacitracin/Neomycin/Polymyxin B Oint 28.4 GM Tube TOP SCH (11:10)
[2024-04-18] MEDS: Triamcinolone Acetonide 0.1% Oint 15 GM Tube TOP SCH (11:11)
[2024-04-18] MEDS: Insulin Glarg,Human.Rec.Analog 100 Unit/ML 10 ML Vial SUBCUT SCH (21:45)
== END 2024-04-20 10:35 | disposition other institution (70) | DRG 948 ==
LOC: DL.MS 17:22
PROVIDERS: ADMIT Internal Medicine; ATTEND Internal Medicine
DX: R53.1 Weakness (principal); L03.115 Cellulitis of right lower limb; L03.116 Cellulitis of left lower limb; I10 Essential (primary) hypertension; E78.5 Hyperlipidemia, unspecified; K59.09 Other constipation; M19.90 Unspecified osteoarthritis, unspecified site; F41.9 Anxiety disorder, unspecified; F32.A Depression, unspecified; E66.9 Obesity, unspecified; E78.00 Pure hypercholesterolemia, unspecified; E11.65 Type 2 diabetes mellitus with hyperglycemia; E88.09 Other disorders of plasma-protein metabolism, not elsewhere classified; H54.7 Unspecified visual loss; L40.9 Psoriasis, unspecified; Z68.28 Body mass index [BMI] 28.0-28.9, adult; Z79.84 Long term (current) use of oral hypoglycemic drugs; Z79.899 Other long term (current) drug therapy; Z98.890 Other specified postprocedural states
CPT/HCPCS: 36415; 80053; 80202; 82272; 82565; 82947; 83735; 85025; 86140; A9270-GY; J0295; J0744; J1171; J1650; J1815-GY; J3372; J3490; J8540